=== PATIENT | male | born 1955 | race Caucasian/White ===

== ENCOUNTER 2016-04-23 10:36 | Emergency (ER) | payer MEDICAID ==
[~2016-04-23] VITALS: Ht 167.6 cm; Wt 122.5 kg
[2016-04-23 10:37] VITALS: BP 137/84; PULSE 92; RESP 16; TEMP 98.6; O2SAT 95
[2016-04-23] MEDS ORDERED: methylPREDNISolone SOD SUCC/PF 62.5 MG/ML VIAL IVP ONE (10:45)
[2016-04-23] MEDS ORDERED: IPRATROPIUM/ALBUTEROL SULFATE 3 ML AMPUL.NEB INH ONE (10:45)
[2016-04-23 11:15] LABS: BASOPHILS # (AUTO) 0.2 K/uL (0.0-0.2); BASOPHILS % (AUTO) 2.8 % (0.0-2.0); EOSINOPHILS # (AUTO) 0.2 K/uL (0.0-0.4); EOSINOPHILS % (AUTO) 2.5 % (0.0-4.0); HEMATOCRIT 43.2 % (36-54); HEMOGLOBIN 14.8 g/dL (14.0-18.0); LYMPHOCYTES # (AUTO) 1.2 K/uL (1.0-5.5); LYMPHOCYTES % (AUTO) 15.3 % (20.5-51.5); MEAN CORPUSCULAR HEMOGLOBIN 33 pg (27-31); MEAN CORPUSCULAR HGB CONC 34 % (32-36); MEAN CORPUSCULAR VOLUME 97 fL (79.0-98.0); MONOCYTES # (AUTO) 0.9 K/uL (0.0-1.0); MONOCYTES % (AUTO) 11.2 % (1.7-9.3); NEUTROPHILS # (AUTO) 5.3 K/uL (1.8-7.7); NEUTROPHILS % (AUTO) 68.2 % (40.0-70.0); PLATELET COUNT (AUTO) 194 K/uL (130-430); RED BLOOD CELL COUNT(AUTO) 4.47 MIL/uL (4.2-6.2); RED CELL DISTRIBUTION WIDTH 11.6 % (9.0-15.0); WHITE BLOOD COUNT (AUTO) 7.8 K/uL (4.8-10.8)
[2016-04-23 11:27] LABS: CALCIUM 8.6 mg/dL (8.4-11.0); CREATININE 0.81 mg/dL (0.55-1.30); POTASSIUM 4.2 mmol/L (3.5-5.1)
[2016-04-23 11:33] LABS: ALBUMIN 3.2 g/dL (3.4-4.8); TOTAL BILIRUBIN 0.6 mg/dL (0.0-1.0); TOTAL PROTEIN, SERUM 7.6 g/dL (6.4-8.3)
[2016-04-23 12:23] VITALS: BP 142/70; PULSE 88; RESP 20; TEMP 97.9; O2SAT 90
== END 2016-04-23 12:23 | disposition home or self-care (01) ==
LOC: SED 10:36
DX: J40 Bronchitis, not specified as acute or chronic (principal); R03.0 Elevated blood-pressure reading, without diagnosis of hypertension; J45.909 Unspecified asthma, uncomplicated; E11.9 Type 2 diabetes mellitus without complications
CPT/HCPCS: 36415; 71010; 80053; 83605; 83880; 85025; 87040; 93005; 94640; 96374; 99285; J2930

== ENCOUNTER 2016-04-29 10:33 | Inpatient (IN) | payer MEDICAID ==
[2016-04-29] VITALS (7 sets, daily range): BP systolic 131–173; BP diastolic 62–95; PULSE 80–100; RESP 18–20; TEMP 96.5–98.1; O2SAT 92–96
[~2016-04-29] VITALS: Ht 170.2 cm; Wt 116.6 kg
--- NOTE | 2016-04-29 11:16 | NUR ---
Patient to ER bed 1 to gown for evaluation. Side rails up. Report given to sridhar cross.
--- NOTE | 2016-04-29 11:24 | NUR ---
Placed on range ecologist, blood pressure machine and pulse oximeter. To gown for exam. Side rails up.
[2016-04-29] MEDS ORDERED: methylPREDNISolone SOD SUCC/PF 62.5 MG/ML VIAL IVP ONE (11:45)
[2016-04-29] MEDS ORDERED: IPRATROPIUM/ALBUTEROL SULFATE 3 ML AMPUL.NEB INH ONE ×2 (11:45→12:15)
--- NOTE | 2016-04-29 11:55 | NUR ---
Veronica anderson in [facility] - 04/29/16 at 1204 by LISA transported to [facility]
--- NOTE | 2016-04-29 12:00 | NUR ---
# 18 gauge angiocath placed to . Use of asceptic technique. Opsite placed over site. Blood return noted. Blood for lab drawn from site. Flushed with 10 cc of normal saline. No evidence of infiltration noted. Patient tolerated well.
--- NOTE | 2016-04-29 12:01 | NUR ---
ER at bedside examining patient.
[2016-04-29 12:07] LABS: BASOPHILS % (AUTO) 0.5 % (0.0-2.0); EOSINOPHILS # (AUTO) 0.3 K/uL (0.0-0.4); EOSINOPHILS % (AUTO) 3.5 % (0.0-4.0); HEMATOCRIT 45.1 % (36-54); HEMOGLOBIN 15.1 g/dL (14.0-18.0); LYMPHOCYTES # (AUTO) 2.5 K/uL (1.0-5.5); LYMPHOCYTES % (AUTO) 29.5 % (20.5-51.5); MEAN CORPUSCULAR HEMOGLOBIN 32 pg (27-31); MEAN CORPUSCULAR HGB CONC 34 % (32-36); MEAN CORPUSCULAR VOLUME 97 fL (79.0-98.0); MONOCYTES # (AUTO) 0.6 K/uL (0.0-1.0); MONOCYTES % (AUTO) 7.1 % (1.7-9.3); NEUTROPHILS # (AUTO) 5.2 K/uL (1.8-7.7); NEUTROPHILS % (AUTO) 59.4 % (40.0-70.0); PLATELET COUNT (AUTO) 222 K/uL (130-430); RED BLOOD CELL COUNT(AUTO) 4.67 MIL/uL (4.2-6.2); RED CELL DISTRIBUTION WIDTH 11.4 % (9.0-15.0); WHITE BLOOD COUNT (AUTO) 8.6 K/uL (4.8-10.8)
[2016-04-29 12:24] LABS: CALCIUM 8.7 mg/dL (8.4-11.0); CREATININE 0.74 mg/dL (0.55-1.30); POTASSIUM 4.4 mmol/L (3.5-5.1)
[2016-04-29 12:29] LABS: ALBUMIN 3.2 g/dL (3.4-4.8); TOTAL BILIRUBIN 0.7 mg/dL (0.0-1.0); TOTAL PROTEIN, SERUM 7.3 g/dL (6.4-8.3)
--- NOTE | 2016-04-29 13:09 | NUR ---
unable to complete home reconcil. pt can't recall the name of home medications. sent home to get list.
--- NOTE | 2016-04-29 13:37 | NUR ---
ER at bedside examining patient.
[2016-04-29] MEDS: cefTRIAXone 1 GM IVPB PREMIX 50 ML IV SCH (13:45)
[2016-04-29] MEDS: methylPREDNISolone SOD SUCC/PF 62.5 MG/ML VIAL IVP SCH ×3 (13:45→21:31)
[2016-04-29] MEDS ORDERED: DEXTROSE 50% JECT 50 ML DISP.SYRIN IVP PRN (13:45)
[2016-04-29] MEDS ORDERED: ALBUTEROL SULFATE 0.083% 2.5 MG/3 ML VIAL.NEB INH PRN (13:45)
[2016-04-29] MEDS ORDERED: IPRATROPIUM BROM 0.5 MG/2.5 ML VIAL.NEB (ATROVENT) INH PRN (13:45)
--- NOTE | 2016-04-29 13:52 | NUR ---
Patient will be admitted to [facility]. Admitted to tele unit. Will go to room . Belongings list completed. Summary report printed. Report given to .
[2016-04-29] MEDS ORDERED: LIP10 PO (13:59)
[2016-04-29] MEDS ORDERED: SITA100T7 PO (13:59)
[2016-04-29] MEDS ORDERED: GLU500 PO (13:59)
[2016-04-29] MEDS ORDERED: LISI-209 PO (13:59)
--- NOTE | 2016-04-29 13:59 | NUR ---
Medication reconciliation completed with information provided by PATIENT. Any prior medication reconciliation on file was reviewed and corrected.
[2016-04-29] MEDS: AZITHROMYCIN 250 MG in NS 250 ML IV SCH (14:00)
[2016-04-29] MEDS ORDERED: ALBMDI INH (14:01)
--- NOTE | 2016-04-29 14:12 | NUR ---
ADMISSION NOTE Received patient from ER via [facility], Patient admitted with diagnosis of copd exacerbation. Patient oriented to hospital routine, call light, toileting and safety-patient verbalized understanding.
[2016-04-29 14:15] LABS: ABG TOTAL HEMOGLOBIN 15.9 G/dL (12.0-18.0); BLOOD GAS BASE EXCESS 1.4 mmol/L (-3.0-3.0); BLOOD GAS PH 7.365 (7.350-7.450)
[2016-04-29 14:16] LABS: BLOOD GAS COHb% 3.9 % (0.5-1.5); BLOOD GAS HHB 5.3 % (0.0-6.0); BLOOD O2Hb% 90.4 % (94.0-97.0)
--- NOTE | 2016-04-29 15:00 | NUR ---
patient is stable, denies any chest pain. states his breathing and shortness of breath has improved greatly since admission.
[2016-04-29] MEDS: IPRATROPIUM BROM 0.5 MG/2.5 ML VIAL.NEB (ATROVENT) INH SCH ×3 (15:50→23:30)
[2016-04-29] MEDS: ALBUTEROL SULFATE 0.083% 2.5 MG/3 ML VIAL.NEB INH SCH ×3 (15:50→23:30)
--- NOTE | 2016-04-29 16:00 | NUR ---
dr campos paged regarding diet, there is no diet order for patient
--- NOTE | 2016-04-29 17:23 | NUR ---
Pulmonary consult Order received for a consult with Dr Tolliver for COPD. Call was placed to [phone], spoke with Maryam at the exchange. Will follow up as needed.
[2016-04-29] MEDS: INSULIN REGULAR, HUMAN 100 UNITS/ML, 10 ML VIAL (novoLIN R) SUBCUT PRN (18:11)
--- NOTE | 2016-04-29 19:10 | NUR ---
INITIAL NOTES RECVD PT IN BED,NO SOB AND NO C/O PAIN NOTED.V/S 131/62,97.7,100,18,96% WITH 2 L N/C.IV NOTED TO R A/C G 20 NO INFILTRATE WITH GOOD BLOOD RETURN.ALL EXTREMITIES ARE STRONG,BRP.DISCUSSED PLAN OF CAFE WITH PT AND VERBALIZED UNDERSTANDING.CALL LIGHT WITHIN REACH,WILL CONT TO MONITOR.
--- NOTE | 2016-04-29 20:32 | NUR ---
PAGED PAGED KRISTINE LORA AT [phone] SPOKE WITH JOSH.
--- NOTE | 2016-04-29 21:10 | NUR ---
SPOKE WITH DR DE JESUS AND GAVE ORDER OF REG DIET.ORDER NOTED AND CARRIED OUT.
--- NOTE | 2016-04-29 23:00 | NUR ---
ROUNDS PT IS ASLEEP,NO C/O PAIN AND NO RESPI DISTRESS NOTED.CALL LIGHT WITHIN REACH,WILL CONT TO MONITOR.
[2016-04-30] MEDS: INSULIN REGULAR, HUMAN 100 UNITS/ML, 10 ML VIAL (novoLIN R) SUBCUT PRN ×5 (00:39→23:39)
--- NOTE | 2016-04-30 01:10 | NUR ---
ROUNDS PT IS AWAKE SITTING, WATCHING FROM HIS LAPTOP. NO C/O PAIN AND NO SOB NOTED. CALL LIGHT WITHIN REACH, WILL CONT TO MONITOR.
--- NOTE | 2016-04-30 03:10 | NUR ---
ROUNDS PT IS RESTING COMFORTABLY IN BED. NO C/O PAIN AND NO SOB NOTED. CALL LIGHT WITHIN REACH,WILL CONT TO MONITOR.
[2016-04-30 03:22] VITALS: BP 150/86; PULSE 91; RESP 18; TEMP 96.8; O2SAT 91
[2016-04-30] MEDS: IPRATROPIUM BROM 0.5 MG/2.5 ML VIAL.NEB (ATROVENT) INH SCH ×6 (03:30→23:25)
[2016-04-30] MEDS: ALBUTEROL SULFATE 0.083% 2.5 MG/3 ML VIAL.NEB INH SCH ×6 (03:30→23:25)
--- NOTE | 2016-04-30 05:10 | NUR ---
ROUNDS PT IS RESTING IN BED @ THIS TIME. NO C/O PAIN AND NO SOB NOTED. CALL LIGHT WITHIN REACH, WILL CONT TO MONITOR.
[2016-04-30] MEDS: methylPREDNISolone SOD SUCC/PF 62.5 MG/ML VIAL IVP SCH ×3 (05:21→22:39)
--- NOTE | 2016-04-30 06:46 | NUR ---
FINAL ROUNDS PT IS RESTING COMFORTABLY @ THIS TIME. NO C/O PAIN AND NO SOB NOTED. V/S ARE WNL. ALL NEEDS MET AND ANTICIPATED BY NOC NURSES. CALL LIGHT WITHIN REACH, ENDORSED.
[2016-04-30] MEDS: ATORVASTATIN 10 MG TABLET PO SCH (08:19)
[2016-04-30] MEDS: LISINOPRIL 5 MG TABLET PO SCH (08:20)
[2016-04-30 08:22] VITALS: BP 158/90; PULSE 100; RESP 14; TEMP 97.7; O2SAT 90
--- NOTE | 2016-04-30 08:25 | NUR ---
Assessment Patient awake, alert, oriented x4, sitting on side of bed. Scheduled medications given per order. Glasses. Lungs clear. Respiration even and unlabored. NSR per telemetry monitoring. Patent 18 gauge saline lock in left antecubital. Denies any pain at this time. Patient stable.
[2016-04-30] MEDS ORDERED: metFORMIN HCL 500 MG TABLET PO SCH (09:00)
--- NOTE | 2016-04-30 09:55 | NUR ---
Routine Patient sitting in chair at bedside. Denies any pain at this time. Tray table and call light within reach. Patient stable.
--- NOTE | 2016-04-30 11:15 | NUR ---
Routine Patient resting in bed with RT, Madai at bedside to administer breathing treatment. Patient denies pain at this time. Patient stable.
--- NOTE | 2016-04-30 12:05 | NUR ---
Routine Checked blood sugar: 291 mg/dl - will cover per sliding scale. Patient resting comfortably in bed with no complaint of pain at this time.
[2016-04-30 12:58] VITALS: BP 146/73; PULSE 96; RESP 19; TEMP 98.2; O2SAT 92
--- NOTE | 2016-04-30 13:25 | NUR ---
Routine Covered per sliding scale. Scheduled IVP med given as well. Patient sitting in chair at bedside. No complaint of pain or discomfort at this time. Patient stable.
[2016-04-30] MEDS: cefTRIAXone 1 GM IVPB PREMIX 50 ML IV SCH (14:24)
--- NOTE | 2016-04-30 14:25 | NUR ---
Routine Scheduled IV ABX given per order. Patient stable at this time. Addendum: 04/30/16 at 1505 by Ligia Pickett RN Sitting in chair at bedside. Family member at bedside.
[2016-04-30] MEDS: AZITHROMYCIN 250 MG in NS 250 ML IV SCH (15:03)
--- NOTE | 2016-04-30 15:05 | NUR ---
Routine Scheduled IV ABX given per order. Patient sitting in chair at bedside. Denies any pain at this time. Patient stable.
[2016-04-30 16:18] VITALS: BP 142/75; PULSE 89; RESP 19; TEMP 98.1; O2SAT 94
--- NOTE | 2016-04-30 18:05 | NUR ---
Routine Checked blood sugar: 277 mg/dl - covered per sliding scale. Patient sitting in chair at bedside. No complaint of pain or discomfort. Patient stable throughout shift.
[2016-04-30 19:30] VITALS: BP 147/86; PULSE 97; RESP 18; TEMP 98.7; O2SAT 93
--- NOTE | 2016-04-30 19:30 | NUR ---
notes received the pt from the day nurse,pt sitting in a chair with no complaints. is at the bedside.pt a/a/ox4 monitor in place and shows SR,iv to lt ac intact,no redness or swellong noted.call light within reach,safety measures in progress.continue to monitor.
[2016-04-30] MEDS: BUDESONIDE 0.5 MG/2 ML AMPUL.NEB INH SCH (20:12)
[2016-04-30] MEDS: metFORMIN HCL 500 MG TABLET PO SCH (20:45)
--- NOTE | 2016-04-30 21:41 | NUR ---
notes pt watching tv with no complaints.accucheck was 275,levemir insulin given as ordered. will continue to monitor.
--- NOTE | 2016-04-30 23:51 | NUR ---
notes accucheck was 316,insulin per s/s given as ordered.continue to monitor .pt with no c/o sob or pain.
[2016-05-01] VITALS (7 sets, daily range): BP systolic 131–147; BP diastolic 61–94; PULSE 63–109; RESP 16–20; TEMP 96.7–98.7; O2SAT 92–99
--- NOTE | 2016-05-01 01:30 | NUR ---
notes pt sleeping on and off with no complaints.continue to monitor.
[2016-05-01] MEDS: IPRATROPIUM BROM 0.5 MG/2.5 ML VIAL.NEB (ATROVENT) INH SCH ×6 (03:00→23:00)
[2016-05-01] MEDS: ALBUTEROL SULFATE 0.083% 2.5 MG/3 ML VIAL.NEB INH SCH ×6 (03:00→23:00)
--- NOTE | 2016-05-01 03:30 | NUR ---
notes family member brought the pt a sandwich.pt eating with no complaints.
--- NOTE | 2016-05-01 05:31 | NUR ---
notes pt resting with eyes closed.no distress noted.call light within reach.
[2016-05-01] MEDS: INSULIN REGULAR, HUMAN 100 UNITS/ML, 10 ML VIAL (novoLIN R) SUBCUT PRN ×3 (06:00→23:44)
[2016-05-01] MEDS: methylPREDNISolone SOD SUCC/PF 62.5 MG/ML VIAL IVP SCH (06:11)
--- NOTE | 2016-05-01 06:17 | NUR ---
closing notes pt awake accucheck was 378 ,insulin was given per s/s.will endorse the care of the pt to the day nurse.
--- NOTE | 2016-05-01 07:30 | NUR ---
AM ROUNDS Pt sitting in chair at side of bed. Denies shortness of breath.. Pt able to speak full and complete sentences with no difficulty..HL to LAC flushes well..pt has a productive cough, small amount of white sputum...Right lung: diminished..Call light/phone w/in reach...Will cont to monitor
[2016-05-01] MEDS: BUDESONIDE 0.5 MG/2 ML AMPUL.NEB INH SCH ×2 (08:02→22:00)
[2016-05-01] MEDS: metFORMIN HCL 500 MG TABLET PO SCH ×2 (08:27→20:56)
[2016-05-01] MEDS: LISINOPRIL 5 MG TABLET PO SCH (08:27)
[2016-05-01] MEDS: ATORVASTATIN 10 MG TABLET PO SCH (08:27)
--- NOTE | 2016-05-01 08:37 | NUR ---
ROUNDS PT STABLE...SITTING IN CHAIR WATCHING TV....TOLERATED DIET WELL...WILL CONT TO MONITOR
--- NOTE | 2016-05-01 11:25 | NUR ---
ROUNDS PT SITTING UP IN BED GETTING A BREATHING TREATMENT..PT DENIES SOB OR PAIN...PT COMFORTABLE AT THIS TIME...WILL CONT TO MONITOR
--- NOTE | 2016-05-01 12:27 | NUR ---
HEARTBURN PT C/O HEARTBURN. REQUESTED A MILK, STATES MILK HELPS WITH HIS HEARTBURN..MILK ORDERED
--- NOTE | 2016-05-01 13:21 | NUR ---
CONTINUED HEARTBURN PT CONTINUES TO HAVE HEARTBURN, STATES "NOT MUCH, THE MILK HELPED. I STILL HAVE A LITTLE BIT" DR JOHNSTON PAGED
[2016-05-01] MEDS: cefTRIAXone 1 GM IVPB PREMIX 50 ML IV SCH (13:43)
[2016-05-01] MEDS ORDERED: PANTOPRAZOLE SODIUM 40 MG TAB PO ONE (13:45)
[2016-05-01] MEDS ORDERED: MAG-AL HYDROX/SIMETH 30 ML UDC PO PRN (14:30)
[2016-05-01] MEDS: AZITHROMYCIN 250 MG in NS 250 ML IV SCH (15:33)
--- NOTE | 2016-05-01 16:01 | NUR ---
ROUNDS PT IN CHAIR..C/O CONTINUED HEARTBURN...WILL GIVE ANOTHER PRN ANTACID...PORTABLE CHEST XRAY DONE..WILL MONITR
--- NOTE | 2016-05-01 16:17 | NUR ---
COUGH Pt with bad cough...Robitussin given
--- NOTE | 2016-05-01 18:25 | NUR ---
ROUNDS PT STABLE...NO CHANGES...WILL CONT TO MONITOR
--- NOTE | 2016-05-01 19:30 | NUR ---
notes received the pt from the day nurse.pt a/a/ox4 sitting up in a chair,no c/o dyspnea but stated he has been coughing alot today.monitor in place and shows SR. iv to lt forearm intact,no redness or swelling noted..call light within reach,safety measures in progress.continue to monitor.
[2016-05-01] MEDS: methylPREDNISolone SOD SUCC 40 MG/ML VIAL IVP SCH (21:58)
--- NOTE | 2016-05-01 21:58 | NUR ---
notes pt watching tv with no complaints.accucheck was 296,levemir given as ordered.
--- NOTE | 2016-05-01 23:01 | NUR ---
notes pt resting with no complaints.continue to monitor.
--- NOTE | 2016-05-02 01:03 | NUR ---
notes pt sleeping.no distress noted.call light within reach.continue to monitor.
[2016-05-02] MEDS: ALBUTEROL SULFATE 0.083% 2.5 MG/3 ML VIAL.NEB INH SCH ×3 (03:00→11:29)
[2016-05-02] MEDS: IPRATROPIUM BROM 0.5 MG/2.5 ML VIAL.NEB (ATROVENT) INH SCH ×3 (03:00→11:29)
--- NOTE | 2016-05-02 03:28 | NUR ---
notes pt sleeping,call light within reach.continue to monitor.
[2016-05-02 04:27] VITALS: BP 145/83; PULSE 100; RESP 18; TEMP 97; O2SAT 92
--- NOTE | 2016-05-02 05:35 | NUR ---
notes pt remains asleep,call light within reach.continue to monitor.
[2016-05-02] MEDS: INSULIN REGULAR, HUMAN 100 UNITS/ML, 10 ML VIAL (novoLIN R) SUBCUT PRN ×2 (05:47→11:45)
--- NOTE | 2016-05-02 06:00 | NUR ---
closing notes pt awake with no complaints ambulated to the bathroom.accucheck was 339,insulin given per s/s.will endorse the care of the pt to the day nurse.
[2016-05-02 08:00] VITALS: BP 143/72; PULSE 96; RESP 20; TEMP 98.6; O2SAT 93
--- NOTE | 2016-05-02 08:01 | NUR ---
AM ROUNDS Patient received, alert awake and oriented x4. VSS. Patient denies pain or SOB at this time. monitoring and evaluation advisor in place, rhythm noted. IV site patent and intact. Patient able to ambulate to bathroom, gait steady voiding without difficulty. Plan of care discussed, patient verbalized understanding. Patient sitting in chair at bedside. Safety and fall precautions in place, call light within reach. Will continue to monitor.
[2016-05-02] MEDS: ATORVASTATIN 10 MG TABLET PO SCH (08:05)
[2016-05-02] MEDS: metFORMIN HCL 500 MG TABLET PO SCH (08:05)
[2016-05-02] MEDS: LISINOPRIL 5 MG TABLET PO SCH (08:05)
[2016-05-02] MEDS: methylPREDNISolone SOD SUCC 40 MG/ML VIAL IVP SCH (08:06)
[2016-05-02] MEDS ORDERED: PANTOPRAZOLE SODIUM 40 MG TAB PO SCH (09:00)
[2016-05-02] MEDS: BUDESONIDE 0.5 MG/2 ML AMPUL.NEB INH SCH (09:53)
--- NOTE | 2016-05-02 10:00 | NUR ---
ROUNDS Late entry due to patient care. Patient sitting in chair at bedside. Denies SOB or pain at this time. No further needs at this time. Will continue to monitor. Call light within reach.
[2016-05-02] MEDS ORDERED: GLIP10TA11 PO (10:50)
[2016-05-02] MEDS ORDERED: METF1000 PO (10:50)
[2016-05-02] MEDS ORDERED: PRED20TA PO (10:51)
[2016-05-02 10:56] VITALS: BP 143/72; PULSE 96
--- NOTE | 2016-05-02 12:31 | NUR ---
ROUNDS Patient tolerating lunch well. Blood sugar 333 insulin coverage given as ordered. No further needs at this time. Discharge order noted. Will continue to monitor. Safety and fall precautions in place, call light within reach, family at bedside.
[2016-05-02 13:30] VITALS: BP 151/89; PULSE 104; RESP 18; TEMP 97.9; O2SAT 99
--- NOTE | 2016-05-02 13:32 | NUR ---
D/C Patient Patient given medication reconciliation form and D/C instructions. Exit Care provided. Patient verbalized understanding. MD discussed with patient the results and treatment provided. Ambulatory with steady gait for discharge to home. Patient in stable condition, ID band removed. IV catheter removed, intact and dressing applied, no active bleeding. Patient educated on disease management, patient and verbalized understanding, no further questions at this time. All belongings sent with patient.
--- NOTE | 2016-05-05 16:28 | NUR ---
Discharge Follow Up Phone Call [employer] phoned patient, . Patient stated he was doing well and the new medication seemed to be working. He has a follow up appointment with his PCP, Dr Ojeda, on 05/12/16. Patient questioned if he should double his DM meds. [employer] stated that was the recommendation of the attending physician. [employer] asked if patient had used a blood glucose monitor. He has not, but has a new one at home. [employer]CH[employer]IC stated patient should use his blood glucose monitor and report his sugar to his PCP and discuss with PCP how to proceed. Patient agreed. [employer]IC stressed the importance of maintaining a stable blood sugar level.
== END 2016-05-02 13:25 | disposition home or self-care (01) | DRG 140 ==
LOC: SED 10:33 → STU 13:51 → SMU 14:42 → STU 14:56
PROVIDERS: ADMIT Internal Medicine Hospice and Palliative Medicine; ATTEND Internal Medicine Hospice and Palliative Medicine
DX: J44.1 Chronic obstructive pulmonary disease with (acute) exacerbation (principal); E44.0 Moderate protein-calorie malnutrition; E11.65 Type 2 diabetes mellitus with hyperglycemia; Z68.41 Body mass index [BMI] 40.0-44.9, adult; J44.0 Chronic obstructive pulmonary disease with (acute) lower respiratory infection; J20.9 Acute bronchitis, unspecified; E78.5 Hyperlipidemia, unspecified; E66.9 Obesity, unspecified; J45.909 Unspecified asthma, uncomplicated; K21.9 Gastro-esophageal reflux disease without esophagitis; Z79.899 Other long term (current) drug therapy; Z90.49 Acquired absence of other specified parts of digestive tract; Z83.3 Family history of diabetes mellitus; Z87.891 Personal history of nicotine dependence
CPT/HCPCS: 36415; 36600; 71010; 80053; 82803-TC; 82962; 83880; 84484; 85025; 93005; 94640; 94760; 96365; 96375; 99285; J0456; J0696; J1030; J1815; J1956; J2930; J7050

== ENCOUNTER 2016-07-05 10:47 | Emergency (ER) | payer MEDICAID ==
[~2016-07-05] VITALS: Ht 170.2 cm; Wt 122.5 kg
[~2016-07-05 10:47] MED LIST: ALBMDI INH; GLIP10TA11 PO; GLU500 PO; LIP10 PO; LISI-209 PO; METF1000 PO; PRED20TA PO; SITA100T7 PO
[2016-07-05 10:49] VITALS: BP 148/104; PULSE 82; RESP 18; TEMP 96.5; O2SAT 95
--- NOTE | 2016-07-05 10:57 | NUR ---
Patient to ER bed 5 to gown for evaluation. Side rails up. Report given to Georgi OSORIO.
--- NOTE | 2016-07-05 10:57 | NUR ---
Pt report received from JO Babcock. Pt c/o orthopnea with productive cough (clear, green sputum) x 1 month. Wheezing noted to Left lung [place]. Pt was in the hospital 1 month ago and dx with pneumonia. No resolution in coughing.
--- NOTE | 2016-07-05 11:00 | NUR ---
DR. DONAHUE AT BEDSIDE EXAMINING THE PT.
[2016-07-05] MEDS ORDERED: IPRATROPIUM/ALBUTEROL SULFATE 3 ML AMPUL.NEB INH ONE (11:45)
[2016-07-05] MEDS ORDERED: DEXAMETHASONE SOD PHOSPHATE 10 MG/ML VIAL IM ONE (11:45)
[2016-07-05 13:00] VITALS: BP 128/78; PULSE 82; RESP 18; TEMP 98; O2SAT 96
--- NOTE | 2016-07-05 13:00 | NUR ---
Patient given written and verbal discharge instructions and verbalizes understanding. ER MD DR. DONAHUE discussed with patient the results and treatment provided. Patient in stable condition. ID arm band removed. Rx of PROMETHAZINE AZITHROMYCIN given. Patient educated on pain management and to follow up with PMD. Pain Scale 0/10 Opportunity for questions provided and answered.
== END 2016-07-05 13:00 | disposition home or self-care (01) ==
LOC: SED 10:47
DX: J20.9 Acute bronchitis, unspecified (principal); R03.0 Elevated blood-pressure reading, without diagnosis of hypertension; J45.909 Unspecified asthma, uncomplicated; J44.9 Chronic obstructive pulmonary disease, unspecified; E11.9 Type 2 diabetes mellitus without complications
CPT/HCPCS: 71010; 94640; 96372; 99283; J1100

== ENCOUNTER 2017-01-28 19:15 | Inpatient (IN) | payer MEDICAID ==
[~2017-01-28] VITALS: Ht 170.2 cm; Wt 120.7 kg
[~2017-01-28 19:15] MED LIST changes: -GLU500 PO
[2017-01-28 19:24] VITALS: BP_SYST 119
[2017-01-28] MEDS ORDERED: NACL 0.9% 1,000 ML IV ONE ×3 (20:15→22:30)
[2017-01-28 20:37] LABS: BASOPHILS # (AUTO) 0.1 K/uL (0.0-0.2); BASOPHILS % (AUTO) 0.8 % (0.0-2.0); EOSINOPHILS # (AUTO) 0.2 K/uL (0.0-0.4); EOSINOPHILS % (AUTO) 2.2 % (0.0-4.0); HEMATOCRIT 47.1 % (36-54); HEMOGLOBIN 15.2 g/dL (14.0-18.0); LYMPHOCYTES # (AUTO) 2.2 K/uL (1.0-5.5); LYMPHOCYTES % (AUTO) 25.8 % (20.5-51.5); MEAN CORPUSCULAR HEMOGLOBIN 32 pg (27-31); MEAN CORPUSCULAR HGB CONC 32 % (32-36); MEAN CORPUSCULAR VOLUME 98 fL (79.0-98.0); MONOCYTES # (AUTO) 0.7 K/uL (0.0-1.0); NEUTROPHILS # (AUTO) 5.5 K/uL (1.8-7.7); NEUTROPHILS % (AUTO) 63.2 % (40.0-70.0); PLATELET COUNT (AUTO) 210 K/uL (130-430); RED BLOOD CELL COUNT(AUTO) 4.82 MIL/uL (4.2-6.2); RED CELL DISTRIBUTION WIDTH 11.6 % (9.0-15.0); WHITE BLOOD COUNT (AUTO) 8.7 K/uL (4.8-10.8)
[2017-01-28] MEDS ORDERED: VANCOMYCIN HCL 1,000 MG in NS 250 ML IV ONE (21:00)
[2017-01-28 21:12] LABS: CREATININE 0.66 mg/dL (0.55-1.30); POTASSIUM 4.2 mmol/L (3.5-5.1)
[2017-01-28 21:17] LABS: ALBUMIN 2.8 g/dL (3.4-4.8); INR 1.1 (0.80-1.20); PROTHROMBIN TIME 10.7 SECS (9.5-12.5); TOTAL BILIRUBIN 0.6 mg/dL (0.0-1.0)
[2017-01-28 21:32] LABS: BILIRUBIN,URINE NEGATIVE (NEGATIVE); CLARITY/URINE CLEAR (CLEAR); COLOR,URINE YELLOW (YELLOW); GLUCOSE,URINE 3+ (NEGATIVE); KETONES,URINE NEGATIVE (NEGATIVE); LEUKOCYTE ESTERASE ,URINE NEGATIVE (NEGATIVE); NITRITE, URINE NEGATIVE (NEGATIVE); PH,URINE 5.5 (5.0-8.0); PROTEIN URINE NEGATIVE (NEGATIVE); UROBILINOGEN,URINE 0.2 (0.2-1.0)
[2017-01-28 21:33] LABS: BLOOD, URINE TRACE (NEGATIVE)
[2017-01-28] MEDS ORDERED: VANCOMYCIN HCL 1000 MG/VIAL IV ONE (21:48)
[2017-01-28 21:51] LABS: BACTERIA,URINE RARE /HPF (None Seen); MUCUS,URINE None Seen /LPF (None Seen); WBC,URINE 0-3 /HPF (0-3)
[2017-01-28 21:52] LABS: RBC,URINE 0-3 /HPF (0-3)
[2017-01-28] MEDS ORDERED: INSULIN REGULAR, HUMAN 10 UNITS/0.1 ML INJ SUBCUT ONE (22:30)
[2017-01-28] MEDS ORDERED: ACETAMINOPHEN 325 MG TABLET PO PRN (22:30)
[2017-01-28] MEDS ORDERED: INSULIN REGULAR, HUMAN 10 UNITS/0.1 ML INJ IVP ONE (22:30)
[2017-01-28] MEDS ORDERED: cloNIDine HCL 0.1 MG TABLET PO PRN (22:30)
[2017-01-28 23:27] VITALS: BP_SYST 149
[2017-01-28] MEDS ORDERED: FLU VACC QS 2017-18(36MOS+)/PF 0.5 ML/SYR SYRINGE I.M. PRN (23:45)
[2017-01-29] VITALS (8 sets, daily range): BP systolic 138–188
[2017-01-29] MEDS ORDERED: AMPICILLIN SODIUM/SULBACTAM NA 3 GM in NS 100 ML IV ONE ×2
[2017-01-29] MEDS ORDERED: AMPICILLIN SODIUM/SULBACTAM NA 3 GM VIAL IV ONE
[2017-01-29] MEDS: ALBUTEROL SULFATE 0.083% 2.5 MG/3 ML VIAL.NEB INH PRN ×2 (00:10→20:04)
[2017-01-29] MEDS ORDERED: AMPICILLIN SODIUM/SULBACTAM NA 3 GM VIAL ONE (00:16)
[2017-01-29] MEDS ORDERED: AMPICILLIN SODIUM/SULBACTAM NA 3 GM VIAL IV SCH (06:00)
[2017-01-29] MEDS: AMPICILLIN SODIUM/SULBACTAM NA 3 GM in NS 100 ML IV SCH ×3 (06:00→21:55)
[2017-01-29] MEDS: INSULIN REGULAR, HUMAN 100 UNITS/ML, 10 ML VIAL (novoLIN R) SUBCUT PRN ×4 (06:09→21:54)
[2017-01-29 06:28] LABS: BASOPHILS % (AUTO) 0.6 % (0.0-2.0); EOSINOPHILS # (AUTO) 0.2 K/uL (0.0-0.4); EOSINOPHILS % (AUTO) 2.6 % (0.0-4.0); HEMATOCRIT 46.8 % (36-54); HEMOGLOBIN 15.5 g/dL (14.0-18.0); LYMPHOCYTES # (AUTO) 1.9 K/uL (1.0-5.5); LYMPHOCYTES % (AUTO) 26.5 % (20.5-51.5); MEAN CORPUSCULAR HEMOGLOBIN 32 pg (27-31); MEAN CORPUSCULAR HGB CONC 33 % (32-36); MEAN CORPUSCULAR VOLUME 97 fL (79.0-98.0); MONOCYTES # (AUTO) 0.7 K/uL (0.0-1.0); MONOCYTES % (AUTO) 9.6 % (1.7-9.3); NEUTROPHILS # (AUTO) 4.5 K/uL (1.8-7.7); NEUTROPHILS % (AUTO) 60.7 % (40.0-70.0); PLATELET COUNT (AUTO) 206 K/uL (130-430); RED BLOOD CELL COUNT(AUTO) 4.84 MIL/uL (4.2-6.2); RED CELL DISTRIBUTION WIDTH 11.7 % (9.0-15.0); WHITE BLOOD COUNT (AUTO) 7.3 K/uL (4.8-10.8)
[2017-01-29 06:51] LABS: ALBUMIN 2.8 g/dL (3.4-4.8); CALCIUM 8.6 mg/dL (8.4-11.0); CREATININE 0.55 mg/dL (0.55-1.30); POTASSIUM 4.1 mmol/L (3.5-5.1); TOTAL BILIRUBIN 0.8 mg/dL (0.0-1.0)
[2017-01-29] MEDS: LISINOPRIL 5 MG TABLET PO SCH (08:21)
[2017-01-29] MEDS: ATORVASTATIN 10 MG TABLET PO SCH (08:21)
[2017-01-29] MEDS: metFORMIN HCL 500 MG TABLET PO SCH ×2 (08:21→17:24)
[2017-01-29] MEDS ORDERED: ASPIRIN 81 MG TAB.CHEW PO ONE (17:00)
[2017-01-29] MEDS ORDERED: VANCOMYCIN HCL 1,250 MG in NS 250 ML IV SCH (18:15)
[2017-01-29] MEDS ORDERED: VANCOMYCIN HCL 500 MG in NS 100 ML IV SCH (18:15)
[2017-01-29] MEDS ORDERED: VANCOMYCIN HCL 1,500 MG in NS 250 ML IV SCH ×4 (18:15)
[2017-01-29] MEDS ORDERED: VANCOMYCIN HCL 750 MG in NS 250 ML IV SCH (18:15)
[2017-01-29] MEDS ORDERED: VANCOMYCIN HCL 1,000 MG in NS 250 ML IV SCH (18:15)
[2017-01-29] MEDS ORDERED: VANCOMYCIN HCL 500 MG/VIAL IV ONE (22:06)
[2017-01-29] MEDS ORDERED: VANCOMYCIN HCL 1000 MG/VIAL IV ONE (22:06)
[2017-01-29] MEDS ORDERED: HYDROcodone/ACETAMIN 5-325 MG TAB (NORCO/ VICODIN) PO PRN (23:15)
[2017-01-30 00:21] VITALS: BP_SYST 142
[2017-01-30 04:58] VITALS: BP_SYST 141
[2017-01-30] MEDS: AMPICILLIN SODIUM/SULBACTAM NA 3 GM in NS 100 ML IV SCH ×3 (05:24→22:06)
[2017-01-30 05:39] LABS: BASOPHILS % (AUTO) 0.3 % (0.0-2.0); EOSINOPHILS # (AUTO) 0.3 K/uL (0.0-0.4); EOSINOPHILS % (AUTO) 3.2 % (0.0-4.0); HEMATOCRIT 43.2 % (36-54); HEMOGLOBIN 14.5 g/dL (14.0-18.0); LYMPHOCYTES % (AUTO) 24.1 % (20.5-51.5); MEAN CORPUSCULAR HEMOGLOBIN 33 pg (27-31); MEAN CORPUSCULAR HGB CONC 34 % (32-36); MEAN CORPUSCULAR VOLUME 97 fL (79.0-98.0); MONOCYTES # (AUTO) 0.6 K/uL (0.0-1.0); MONOCYTES % (AUTO) 7.6 % (1.7-9.3); NEUTROPHILS # (AUTO) 5.4 K/uL (1.8-7.7); NEUTROPHILS % (AUTO) 64.8 % (40.0-70.0); PLATELET COUNT (AUTO) 200 K/uL (130-430); RED BLOOD CELL COUNT(AUTO) 4.44 MIL/uL (4.2-6.2); RED CELL DISTRIBUTION WIDTH 11.5 % (9.0-15.0); WHITE BLOOD COUNT (AUTO) 8.3 K/uL (4.8-10.8)
[2017-01-30 05:40] LABS: CALCIUM 8.8 mg/dL (8.4-11.0); CREATININE 0.75 mg/dL (0.55-1.30); POTASSIUM 3.8 mmol/L (3.5-5.1)
[2017-01-30] MEDS: INSULIN REGULAR, HUMAN 100 UNITS/ML, 10 ML VIAL (novoLIN R) SUBCUT PRN ×4 (06:28→20:46)
[2017-01-30 07:59] VITALS: BP_SYST 150
[2017-01-30] MEDS: metFORMIN HCL 500 MG TABLET PO SCH ×2 (08:05→17:12)
[2017-01-30] MEDS: ATORVASTATIN 10 MG TABLET PO SCH (08:05)
[2017-01-30] MEDS: ASPIRIN 81 MG TAB.CHEW PO SCH (08:05)
[2017-01-30] MEDS: LISINOPRIL 5 MG TABLET PO SCH (08:06)
[2017-01-30] MEDS ORDERED: ONDANSETRON HCL 4 MG/2 ML VIAL IVP PRN (11:00)
[2017-01-30 12:47] VITALS: BP_SYST 143
[2017-01-30] MEDS: HYDROcodone/ACETAMIN 10-325 MG TAB PO PRN (13:43)
[2017-01-30] MEDS: VANCOMYCIN HCL 1,250 MG in NS 250 ML IV SCH ×2 (14:59→22:52)
[2017-01-30] MEDS: GABAPENTIN 100 MG CAPSULE PO SCH ×2 (14:59→20:39)
[2017-01-30 16:21] VITALS: BP_SYST 152
[2017-01-30 20:00] VITALS: BP_SYST 148
[2017-01-30] MEDS: ENOXAPARIN SODIUM 40 MG/0.4 ML SYRINGE SUBCUT SCH (20:44)
[2017-01-31] VITALS (7 sets, daily range): BP systolic 132–150
[2017-01-31] MEDS: AMPICILLIN SODIUM/SULBACTAM NA 3 GM in NS 100 ML IV SCH ×3 (05:09→21:15)
[2017-01-31] MEDS: VANCOMYCIN HCL 1,250 MG in NS 250 ML IV SCH ×3 (06:14→23:44)
[2017-01-31] MEDS: INSULIN REGULAR, HUMAN 100 UNITS/ML, 10 ML VIAL (novoLIN R) SUBCUT PRN ×4 (06:15→20:48)
[2017-01-31 06:17] LABS: BASOPHILS % (AUTO) 0.5 % (0.0-2.0); EOSINOPHILS # (AUTO) 0.2 K/uL (0.0-0.4); EOSINOPHILS % (AUTO) 2.7 % (0.0-4.0); HEMATOCRIT 44.4 % (36-54); HEMOGLOBIN 14.8 g/dL (14.0-18.0); LYMPHOCYTES # (AUTO) 1.8 K/uL (1.0-5.5); LYMPHOCYTES % (AUTO) 21.9 % (20.5-51.5); MEAN CORPUSCULAR HEMOGLOBIN 32 pg (27-31); MEAN CORPUSCULAR HGB CONC 33 % (32-36); MEAN CORPUSCULAR VOLUME 97 fL (79.0-98.0); MONOCYTES # (AUTO) 0.6 K/uL (0.0-1.0); MONOCYTES % (AUTO) 7.5 % (1.7-9.3); NEUTROPHILS # (AUTO) 5.8 K/uL (1.8-7.7); NEUTROPHILS % (AUTO) 67.4 % (40.0-70.0); PLATELET COUNT (AUTO) 213 K/uL (130-430); RED BLOOD CELL COUNT(AUTO) 4.59 MIL/uL (4.2-6.2); RED CELL DISTRIBUTION WIDTH 11.6 % (9.0-15.0); WHITE BLOOD COUNT (AUTO) 8.4 K/uL (4.8-10.8)
[2017-01-31 06:44] LABS: ALBUMIN 2.6 g/dL (3.4-4.8); CALCIUM 8.9 mg/dL (8.4-11.0); CREATININE 0.76 mg/dL (0.55-1.30); TOTAL BILIRUBIN 0.8 mg/dL (0.0-1.0)
[2017-01-31] MEDS: ATORVASTATIN 10 MG TABLET PO SCH (08:10)
[2017-01-31] MEDS: GABAPENTIN 100 MG CAPSULE PO SCH ×3 (08:10→20:41)
[2017-01-31] MEDS: metFORMIN HCL 500 MG TABLET PO SCH ×2 (08:10→17:16)
[2017-01-31] MEDS: ASPIRIN 81 MG TAB.CHEW PO SCH (08:10)
[2017-01-31] MEDS: LISINOPRIL 5 MG TABLET PO SCH (08:11)
[2017-01-31] MEDS: ENOXAPARIN SODIUM 40 MG/0.4 ML SYRINGE SUBCUT SCH (20:41)
[2017-01-31] MEDS: HYDROcodone/ACETAMIN 10-325 MG TAB PO PRN (20:59)
[2017-02-01 00:46] VITALS: BP_SYST 154
[2017-02-01] MEDS: HYDROcodone/ACETAMIN 10-325 MG TAB PO PRN ×5 (01:13→16:20)
[2017-02-01 04:42] VITALS: BP_SYST 146
[2017-02-01] MEDS ORDERED: VANCOMYCIN HCL 500 MG/VIAL IV ONE (05:22)
[2017-02-01] MEDS ORDERED: VANCOMYCIN HCL 1000 MG/VIAL IV ONE (05:22)
[2017-02-01] MEDS: AMPICILLIN SODIUM/SULBACTAM NA 3 GM in NS 100 ML IV SCH ×3 (05:26→21:23)
[2017-02-01] MEDS: VANCOMYCIN HCL 1,250 MG in NS 250 ML IV SCH ×3 (06:18→23:07)
[2017-02-01 06:27] LABS: BASOPHILS % (AUTO) 0.4 % (0.0-2.0); EOSINOPHILS # (AUTO) 0.2 K/uL (0.0-0.4); EOSINOPHILS % (AUTO) 2.3 % (0.0-4.0); HEMATOCRIT 44.9 % (36-54); HEMOGLOBIN 14.8 g/dL (14.0-18.0); LYMPHOCYTES # (AUTO) 1.9 K/uL (1.0-5.5); LYMPHOCYTES % (AUTO) 23.2 % (20.5-51.5); MEAN CORPUSCULAR HEMOGLOBIN 32 pg (27-31); MEAN CORPUSCULAR HGB CONC 33 % (32-36); MEAN CORPUSCULAR VOLUME 98 fL (79.0-98.0); MONOCYTES # (AUTO) 0.6 K/uL (0.0-1.0); MONOCYTES % (AUTO) 7.8 % (1.7-9.3); NEUTROPHILS # (AUTO) 5.5 K/uL (1.8-7.7); NEUTROPHILS % (AUTO) 66.3 % (40.0-70.0); PLATELET COUNT (AUTO) 216 K/uL (130-430); RED BLOOD CELL COUNT(AUTO) 4.57 MIL/uL (4.2-6.2); RED CELL DISTRIBUTION WIDTH 11.9 % (9.0-15.0); WHITE BLOOD COUNT (AUTO) 8.2 K/uL (4.8-10.8)
[2017-02-01] MEDS: INSULIN REGULAR, HUMAN 100 UNITS/ML, 10 ML VIAL (novoLIN R) SUBCUT PRN (06:32)
[2017-02-01 06:33] LABS: ALBUMIN 2.6 g/dL (3.4-4.8); CALCIUM 9.2 mg/dL (8.4-11.0); CREATININE 0.81 mg/dL (0.55-1.30); POTASSIUM 4.1 mmol/L (3.5-5.1); TOTAL BILIRUBIN 0.8 mg/dL (0.0-1.0)
[2017-02-01 08:00] VITALS: BP_SYST 131
[2017-02-01] MEDS: LISINOPRIL 5 MG TABLET PO SCH (08:43)
[2017-02-01] MEDS: metFORMIN HCL 500 MG TABLET PO SCH ×2 (08:44→17:33)
[2017-02-01] MEDS: ATORVASTATIN 10 MG TABLET PO SCH (08:44)
[2017-02-01] MEDS: GABAPENTIN 100 MG CAPSULE PO SCH ×3 (08:44→21:12)
[2017-02-01] MEDS: ASPIRIN 81 MG TAB.CHEW PO SCH (08:44)
[2017-02-01] MEDS: INSULIN ASPART 100 UNITS/ML, 10 ML VIAL (NovoLOG) SUBCUT PRN ×2 (11:25→21:21)
[2017-02-01 12:29] VITALS: BP_SYST 119
[2017-02-01 16:39] VITALS: BP_SYST 132
[2017-02-01 20:00] VITALS: BP_SYST 139
[2017-02-01] MEDS: ENOXAPARIN SODIUM 40 MG/0.4 ML SYRINGE SUBCUT SCH (21:12)
[2017-02-02 00:01] VITALS: BP_SYST 136
[2017-02-02 03:42] VITALS: BP_SYST 138
[2017-02-02 04:00] VITALS: BP_SYST 142
[2017-02-02] MEDS: AMPICILLIN SODIUM/SULBACTAM NA 3 GM in NS 100 ML IV SCH ×2 (05:14→13:24)
[2017-02-02] MEDS: VANCOMYCIN HCL 1,250 MG in NS 250 ML IV SCH (06:22)
[2017-02-02] MEDS: INSULIN ASPART 100 UNITS/ML, 10 ML VIAL (NovoLOG) SUBCUT PRN ×2 (06:29→12:28)
[2017-02-02 06:36] LABS: CALCIUM 8.9 mg/dL (8.4-11.0); CREATININE 0.72 mg/dL (0.55-1.30); POTASSIUM 4.2 mmol/L (3.5-5.1)
[2017-02-02 08:00] VITALS: BP_SYST 131
[2017-02-02] MEDS: metFORMIN HCL 500 MG TABLET PO SCH (08:04)
[2017-02-02] MEDS: ASPIRIN 81 MG TAB.CHEW PO SCH (08:04)
[2017-02-02] MEDS: ATORVASTATIN 10 MG TABLET PO SCH (08:05)
[2017-02-02] MEDS: LISINOPRIL 5 MG TABLET PO SCH (08:05)
[2017-02-02] MEDS: GABAPENTIN 100 MG CAPSULE PO SCH (08:05)
[2017-02-02] MEDS: HYDROcodone/ACETAMIN 10-325 MG TAB PO PRN (08:08)
[2017-02-02 12:00] VITALS: BP_SYST 139
[2017-02-02 14:41] VITALS: BP_SYST 136
== END 2017-02-02 15:40 | disposition short-term general hospital (02) | DRG 344 ==
LOC: SED 19:15 → STU 22:27 → SMU 01-29 16:04
PROVIDERS: ADMIT Internal Medicine; ATTEND Internal Medicine
DX: E11.621 Type 2 diabetes mellitus with foot ulcer (principal); M86.8X7 Other osteomyelitis, ankle and foot; E11.42 Type 2 diabetes mellitus with diabetic polyneuropathy; E11.51 Type 2 diabetes mellitus with diabetic peripheral angiopathy without gangrene; E44.0 Moderate protein-calorie malnutrition; L03.116 Cellulitis of left lower limb; Z68.41 Body mass index [BMI] 40.0-44.9, adult; E66.01 Morbid (severe) obesity due to excess calories; L03.032 Cellulitis of left toe; E11.65 Type 2 diabetes mellitus with hyperglycemia; J44.9 Chronic obstructive pulmonary disease, unspecified; I10 Essential (primary) hypertension; L97.429 Non-pressure chronic ulcer of left heel and midfoot with unspecified severity; F17.210 Nicotine dependence, cigarettes, uncomplicated; E11.69 Type 2 diabetes mellitus with other specified complication; Z79.899 Other long term (current) drug therapy
CPT/HCPCS: 36415; 71010; 73700-TC; 80048; 80053; 80202-TC; 81000-TC; 82962; 83605; 84443-TC; 85025; 85610-TC; 85730-TC; 87040-TC; 87070-TC; 87075-TC; 87081; 93005; 93923; 93971; 94640; 94760; 96365; 96366; 96372; 99285; J0295; J1650; J1815; J3370; J7030; J7040; J7050; Q2037